=== PATIENT | male | born 1995 | race Caucasian/White ===

== ENCOUNTER 2020-04-22 11:40 | Emergency (ER) | payer OTHER, SELFPAY ==
--- NOTE | 2020-04-22 11:44 | ED_ITS ---
HPI - Overdose General Stated Complaint: SUBSTANCE ABUSE PER EMS NO NARCAN GIVEN Time Seen by Provider: 04/22/20 11:43 Source: patient and EMS Mode of arrival: EMS Limitations: no limitations History of Present Illness HPI Narrative: no SI, refuses detox, does not want narcan to take with him complaint: other (found sleepy in [facility] bathroom after using heroin, no narcan given) Onset (ago): minute(s) (just [employer]) Intent: other (not intentional just trying to get high) How Overdose Was Discovered: other (found sleepy in bathroom) Context: Accidental Overdose: wanted to get high Treatments Prior to Arrival: none Related Data Allergies Allergy/AdvReac Type Severity Reaction Status Date / Time No Known Allergies Allergy Unverified 01/20/20 16:28 [No Known Allergies*] Review of Systems Review of Systems: Constitutional : No Fever, No Chills ENT/Mouth : No Ear Pain, No Nasal Congestion, No sore throat Eyes: No Eye Pain, No Swelling, No Redness Cardiovascular : No Chest Pain, No SOB Respiratory : No Cough, No Sputum, No Dyspnea Gastrointestinal : No Nausea, No Vomiting, No Diarrhea, No Hematochezia, No Melena Genitourinary : No Dysuria, No Urinary Frequency, No Hematuria Musculoskeletal : No Myalgias Skin : No Skin Lesions, No rash Neuro : No Weakness, No Numbness, No Paresthesias, No Dizziness, No Headache Psych : noAnxiety, positive Depression, no SI/HI o PMFSH Past Medical History Attestation statement: The following information was validated with the patient. Medical History Opiate abuse, continuous Social History Social History (Updated 04/22/20 @ 11:47 by Tram Man DO) Smoking Status: Current every day smoker Substance Use Type: Heroin and IV Drugs Physical Exam Vital Signs: Appearance: Alert. Oriented X3. No acute distress. Smiling, laughing, eating a lollipop Eyes: Pupils equal, round and reactive to light. ENT: Pharynx normal. Neck: Normal inspection. Neck supple. CVS: Normal heart rate and rhythm. Pulses normal. Respiratory: No respiratory distress. Breath sounds normal. Abdomen: Soft and nontender. Skin: Skin warm and dry. Normal skin color. Normal skin turgor. Extremities: No lower extremity edema. No calf ttp Neuro: Oriented X 3. No motor deficit. No sensory deficit. Psych: no SI/HI MDM - Overdose MDM Narrative Medical decision making narrative: 25 yo male here after heroin abuse no SI/HI does not want detox or narcan to take with him, not toxic, no narcan given, awake and alert, stable for DC Discharge Plan Discharge Clinical Impression: Heroin abuse Patient Disposition: Home, Self-Care Instructions: Narcotic Use Disorder (ED) Additional Instructions: return to ED for any worsening symptoms or concerns
[2020-04-22 11:49] VITALS: BP 98/61; PULSE 109; RESP 18; TEMP 36.6; O2SAT 96; BMI 29.2
== END 2020-04-22 12:38 | disposition home or self-care (01) ==
LOC: HO.ED 12:04
PROVIDERS: Emergency Provider Emergency Medicine; PCP Family Medicine
DX: T40.1X1A Poisoning by heroin, accidental (unintentional), initial encounter (principal); F11.10 Opioid abuse, uncomplicated; Y92.9 Unspecified place or not applicable; F17.200 Nicotine dependence, unspecified, uncomplicated; Z71.6 Tobacco abuse counseling
CPT/HCPCS: 99283

== ENCOUNTER 2020-06-08 22:34 | Emergency (ER) | payer OTHER, SELFPAY ==
--- NOTE | ~2020-06-08 | XR_ITS ---
EXAMINATION: FINGER 3 VIEWS, RIGHT CLINICAL INFORMATION: Infection. Stuck with needle. COMPARISON: None. TECHNIQUE: A PA view of the right hand is provided along with two views of the second digit. FINDINGS: There is soft tissue swelling to the second digit. There are no fractures or dislocations. There are no radiopaque foreign bodies. XR/XR finger RT min 2V IMPRESSION: Soft tissue swelling to the second digit without fracture or dislocation. No radiopaque foreign bodies.
[2020-06-08 22:45] VITALS: BP 113/64; PULSE 91; RESP 16; TEMP 36.8; O2SAT 99; BMI 23.5
--- NOTE | 2020-06-08 23:57 | ED.SKABFB ---
HPI - Skin/Abscess/Foreign Bdy General Chief complaint: Skin/Abscess/Foreign Body Stated complaint: swollen finger needle stick Time Seen by Provider: 06/08/20 23:56 Source: patient Mode of arrival: ambulatory Limitations: no limitations History of Present Illness HPI narrative: 25-year-old male with medical history of IVDA substance abuse presents with abscess to the right index finger after needle stick. The needle did not break, and it was not used by any other person's but himself. He is currently homeless. Denies suicidal and homicidal ideations, chest pain or pressure, palpitations, fevers, chills, nausea, vomiting, diarrhea, and any other concerning symptoms. Related Data Previous Rx's Medication Instructions Recorded cephalexin 500 mg PO QID 7 Days #28 cap 06/09/20 doxycycline monohydrate 100 mg PO BID 7 Days #14 cap 06/09/20 Allergies Allergy/AdvReac Type Severity Reaction Status Date / Time No Known Allergies Allergy Verified 06/08/20 22:48 [No Known Allergies*] Review of Systems Review of Systems: Constitutional: No Fever, No Chills ENT/Mouth: No Ear Pain, No Hoarseness, No sore throat Eyes: No Eye Pain, No Swelling, No Redness, No Foreign Body Cardiovascular: No Chest Pain, No SOB Respiratory: No Cough, No Dyspnea Gastrointestinal: No Nausea, No Vomiting, No Diarrhea, No abdominal Pain Genitourinary: No Dysuria, No Hematuria Musculoskeletal: positive right index finger swelling and pain, No Myalgias, No Joint Swelling Skin: No Skin lacerations, No rash Neuro: No Weakness, No Numbness, No Paresthesias, No Loss of Consciousness, No Dizziness, No Headache Psych: No Anxiety/Panic, No Depression Heme/Lymph: no easy bruising, no Lymphadenopathy Endocrine: No Polyuria, No Polydipsia Yes all other systems are reviewed and are negative [facility] Past Medical History Attestation statement: The following information was validated with the patient. Source: old records reviewed Medical History Opiate abuse, continuous Social History Social History Alcohol intake: never Smoking Status: Current every day smoker Smoked in Last 30 Days: No Use of substances other than those prescribed or required for medical reasons: No Substance Use Type: Crack/Cocaine, Heroin and Marijuana Advance Directives: No Advance Directives Information Provided: No Physical Exam Vital Signs: Vital Signs: Last Vital Signs Temp 98.2 F 06/08/20 22:45 Pulse 91 06/08/20 22:45 Resp 16 06/08/20 22:45 BP 113/64 06/08/20 22:45 Pulse Ox 99 06/08/20 22:45 Body Mass Index 23.5 Appearance: Alert. Oriented X3. Appears intoxicated. No acute distress. Eyes: Pupils equal, round and reactive to light. ENT: Pharynx normal. Neck: Normal inspection. Neck supple. CVS: Normal heart rate and rhythm. Pulses normal. Respiratory: No respiratory distress. Breath sounds normal. Abdomen: Soft and nontender. Skin: Right index finger swollen, visible pustule right at the D IP joint, Skin warm and dry, disheveled and malodorous secondary to homelessness. Normal skin color. Normal skin turgor. Extremities: No lower extremity edema. Neuro: No motor deficit. No sensory deficit. Course Course Course Narrative: 25-year-old male with IV D a opioid abuse presents with cellulitis and abscess to the right index finger after a needle stick. X-rays are negative for foreign body, plan is to digitally block and I and D the abscess. Prepped and draped in sterile fashion, 11 blade used, Patient tolerated procedure well, approximately 4 mL of purulent drainage from the site, topical antibiotic ointment and sterile dressing applied. Patient discharged home with antibiotics. Patient verbalized understanding of and agrees plan of care discharge home. Procedures Abscess I/D Site: hand Side (if applicable): right Local Anesthetic: lidocaine 2% Amount of anesthesia used (mL): 4 Technique: incised with blade Amount of fluid expressed (mL): 4 Sent for culture/gram staining?: No Irrigation: Yes Packing used?: none MDM - Skin/Abscess/Foreign Bdy MDM Narrative Medical decision making narrative: Foreign body Differential Diagnosis Differential diagnosis: Likely abscess of skin or subcutaneous tissue Medical Records Attestation: I reviewed the patient's medical records. Imaging Data Right index finger x-ray: Attestation: I personally reviewed and interpreted this imaging study as follows: Radiologist's impression: EXAMINATION: FINGER 3 VIEWS, RIGHT CLINICAL INFORMATION: Infection. Stuck with needle. COMPARISON: None. TECHNIQUE: A PA view of the right hand is provided along with two views of the second digit. FINDINGS: There is soft tissue swelling to the second digit. There are no fractures or dislocations. There are no radiopaque foreign bodies. XR/XR finger RT min 2V IMPRESSION: Soft tissue swelling to the second digit without fracture or dislocation. No radiopaque foreign bodies. Discharge Plan Discharge Clinical Impression: Cellulitis Qualifiers: Site of cellulitis: extremity Site of cellulitis of extremity: finger Laterality: right Qualified Code(s): L03.011 - Cellulitis of right finger Abscess of skin or subcutaneous tissue Qualifiers: Site of cutaneous abscess: extremity Site of cutaneous abscess of extremity: hand Laterality: right Qualified Code(s): L02.511 - Cutaneous abscess of right hand Patient Disposition: Home, Self-Care Instructions: Cellulitis (ED), Abscess (ED) Additional Instructions: You were evaluated for abscess on the right index finger. X-rays negative for foreign body and bone involvement. We drain that abscess. Please return in 3 days for wound check. Please take doxycycline and Keflex as directed. These medications are antibiotics. Thank you for choosing this emergency department for evaluation. Please follow-up with primary care physician as needed. Return to the emergency department for any new, concerning, or worsening symptoms. Prescriptions: New doxycycline monohydrate 100 mg capsule 100 mg PO BID 7 Days Qty: 14 RF: 0 cephalexin 500 mg capsule 500 mg PO QID 7 Days Qty: 28 RF: 0
[2020-06-09] MEDS: cephALEXin 500 MG CAPSULE PO (00:12)
[2020-06-09] MEDS: Lidocaine HCl 2 % MPF 5 ML VIAL SUBCUT (00:14)
--- NOTE | 2020-06-09 01:20 | PC.NURSE ---
PT RIGHT PIONTER FINGER CLEANED AND DRAINED BY ANNE LIND. DSD APPLIED.
== END 2020-06-09 01:39 | disposition home or self-care (01) ==
PROVIDERS: Emergency Provider Internal Medicine
DX: L02.511 Cutaneous abscess of right hand (principal); L03.011 Cellulitis of right finger; M79.644 Pain in right finger(s); F11.10 Opioid abuse, uncomplicated; F17.200 Nicotine dependence, unspecified, uncomplicated; F14.10 Cocaine abuse, uncomplicated; F12.10 Cannabis abuse, uncomplicated; Z71.6 Tobacco abuse counseling
CPT/HCPCS: 20610; 73140; 90471; 90715; 99284

== ENCOUNTER 2020-10-19 16:33 | Emergency (ER) | payer OTHER, SELFPAY ==
--- NOTE | ~2020-10-19 | XR_ITS ---
EXAMINATION: XR FOOT, LEFT CLINICAL INFORMATION: Foot pain and swelling COMPARISON: None TECHNIQUE: AP, lateral, and oblique views of the left foot. FINDINGS: Soft tissue swelling is present especially on the dorsum of the foot. No bone or joint abnormality is seen. XR/XR foot LT min 3V IMPRESSION: Soft tissue swelling without bone or joint abnormality.
[2020-10-19 16:56] VITALS: BP 121/71; PULSE 110; RESP 18; TEMP 36.8; BMI 27.3
--- NOTE | 2020-10-19 21:18 | PC.NURSE ---
PT WHEELED OUT OF ED IN WHEELCHAIR, PT SWEARING AT STAFF ON WAY OUT STATING YOU [employer] [facility].
== END 2020-10-19 21:21 | disposition left against medical advice (07) ==
PROVIDERS: Emergency Provider Emergency Medicine
DX: M25.579 Pain in unspecified ankle and joints of unspecified foot (principal)
CPT/HCPCS: 73630; 99282; 99283

== ENCOUNTER 2020-10-21 23:37 | Emergency (ER) | payer OTHER, SELFPAY ==
--- NOTE | ~2020-10-21 | XR_ITS ---
EXAMINATION: XR FOOT, LEFT CLINICAL INFORMATION: Injury COMPARISON: None TECHNIQUE: 3 views of the left foot. FINDINGS: The bones and soft tissues are normal. No fracture. Alignment is anatomic. Joint spaces are maintained. XR/XR foot LT min 3V IMPRESSION: Normal left foot.
[2020-10-21 23:59] VITALS: BP 130/100; BP 130/51; PULSE 100; RESP 17; TEMP 37.7; O2SAT 100; O2SAT 98; BMI 36.6
--- NOTE | 2020-10-22 00:12 | ED_ITS ---
HPI - General Adult General Chief complaint: Extremity Injury, Lower Stated complaint: LT ANKLE PAIN/SWELLING NO KNOWN INJURY Time Seen by Provider: 10/22/20 00:12 Related Data Previous Rx's Medication Instructions Recorded cephalexin 500 mg PO QID 7 Days #28 cap 06/09/20 doxycycline monohydrate 100 mg PO BID 7 Days #14 cap 06/09/20 doxycycline hyclate 100 mg PO BID 10 Days #20 cap 10/22/20 ibuprofen 600 mg PO Q8H PRN #20 tab 10/22/20 Allergies Allergy/AdvReac Type Severity Reaction Status Date / Time No Known Allergies Allergy Verified 10/22/20 01:16 [No Known Allergies*] Review of Systems Review of Systems: Constitutional : No Weight loss, No Fever, No Chills, No Night Sweats, No Fatigue, No Malaise ENT/Mouth : No Hearing loss, No Ear Pain, No Nasal Congestion, No Sinus Pain, No Hoarseness, No sore throat, No Rhinorrhea, No Swallowing Difficulty Eyes: No Eye Pain, No Swelling, No Redness, No Foreign Body, No Discharge, No Vision Changes Cardiovascular : No Chest Pain, No SOB, No Dyspnea on Exertion, No Orthopnea, No Edema, No Palpitations Respiratory : No Cough, No Sputum, No Wheezing, No Smoke Exposure, No Dyspnea Gastrointestinal : No Nausea, No Vomiting, No Diarrhea, No Constipation, No abdominal Pain, No Hematochezia, No Melena Genitourinary : no irregular bleeding, No Dysuria, No Urinary Frequency, No Hematuria, No Urinary Incontinence, No Urgency, No Flank Pain, No Urinary Flow Changes, No Hesitancy Musculoskeletal : No joint pain, No Myalgias, No Joint Swelling Skin : No Skin Lesions, No rash, redness to his left ankle Neuro : No Weakness, No Numbness, No Paresthesias, No Loss of Consciousness, No Dizziness, No Headache Psych : No Anxiety/Panic, No Depression, No SI/HI/AH/VH, No Social Issues, Heme/Lymph: No Bruising, No Bleeding,No Lymphadenopathy Endocrine : No Polyuria, No Polydipsia, No Temperature Intolerance Yes all other systems are reviewed and are negative PMFSH Past Medical History Medical History Opiate abuse, continuous Social History Social History (Reviewed 10/22/20 @ 00:15 by Ruma Wallace [facility] Alcohol intake: never Substance Use Type: Crack/Cocaine, Heroin and Marijuana Advance Directives: No Advance Directives Information Provided: No Physical Exam Vital Signs: Vital Signs: Last Vital Signs Temp 99.9 F 10/21/20 23:59 Pulse 100 10/21/20 23:59 Resp 17 10/21/20 23:59 BP 130/51 L 10/21/20 23:59 Pulse Ox 100 10/21/20 23:59 Body Mass Index 36.6 Const: General: healthy appearing, no acute distress and well developed Nutritional Appearance: well nourished Orientation/consciousness: patient oriented x3 Neck: Neck: Yes normal visual inspection, Yes full ROM and Yes trachea midline Thyroid: Thyroid normal Resp: Auscultation: clear to auscultation bilaterally Cardio: Rate: regular rate Rhythm: regular rhythm GI: Inspection: Yes normal to inspection and No distended Palpation (GI): No hepatosplenomegaly present Auscultation: normal bowel sounds Skin: General skin exam: elasticity normal, turgor normal and dry skin Neuro: General: patient oriented x3 Extrem: Left lower extremity: edema (Left ankle edema) Course Course Course Narrative: 25-year-old male with history of IV drug use common here today for complaining of left ankle pain. Patient reports that he fell and injured his ankle. Patient's ankle is swollen and red. Patient denies IV drug use to his foot. Will obtain x-rays and medicate patient for pain. Small scab to his 5th toe negative for drainage. Reevaluation(s) Reevaluation #1: X-ray negative for any acute processes. I will send patient home with ibuprofen and doxycycline. Patient reports that he does not inject into his foot. Mild swelling around his ankle however no visible track leal Medical Decision Making Imaging Data Left foot x-ray: Radiologist's impression: FINDINGS: The bones and soft tissues are normal. No fracture. Alignment is anatomic. Joint spaces are maintained. XR/XR foot LT min 3V IMPRESSION: Normal left foot. Discharge Plan Discharge Clinical Impression: Ankle sprain and strain Patient Disposition: Home, Self-Care Instructions: Swollen Ankle Joint (ED) Additional Instructions: You were seen here today for complaints of ankle pain and swelling. Your x-rays negative for any abnormality. Please follow-up with your primary care physician in 2-3 days. You may return to emergency department if you will experience worsening symptoms or any other concerning symptoms Prescriptions: New doxycycline hyclate 100 mg capsule 100 mg PO BID 10 Days Qty: 20 RF: 0 ibuprofen 600 mg tablet 600 mg PO Q8H PRN (Reason: pain) Qty: 20 RF: 0 No Action doxycycline monohydrate 100 mg capsule 100 mg PO BID 7 Days Qty: 14 RF: 0 cephalexin 500 mg capsule 500 mg PO QID 7 Days Qty: 28 RF: 0
--- NOTE | 2020-10-22 00:12 | PC.NURSE ---
[employer] at bedside.
[2020-10-22] MEDS: Ibuprofen 600 MG TABLET PO (00:24)
--- NOTE | 2020-10-22 00:24 | PC.NURSE ---
Pt medicated per JUL. Off to XRay on hospital bed.
--- NOTE | 2020-10-22 01:15 | PC.NURSE ---
Medicated with ABX, awaiting DC instructions.
== END 2020-10-22 01:43 | disposition home or self-care (01) ==
PROVIDERS: Emergency Provider Student in an Organized Health Care Education/Training Program
DX: S93.402A Sprain of unspecified ligament of left ankle, initial encounter (principal); S96.912A Strain of unspecified muscle and tendon at ankle and foot level, left foot, initial encounter; F11.10 Opioid abuse, uncomplicated; W19.XXXA Unspecified fall, initial encounter; Y93.9 Activity, unspecified; Y92.9 Unspecified place or not applicable; Y99.9 Unspecified external cause status
CPT/HCPCS: 73630; 99283; 99284

== ENCOUNTER 2021-06-14 19:05 | Emergency (ER) | payer OTHER, SELFPAY ==
[2021-06-14 20:18] VITALS: BP 120/72; PULSE 64; RESP 16; TEMP 36.4; O2SAT 100; BMI 24.6
--- NOTE | 2021-06-14 22:55 | ED.DENTAL ---
HPI - Dental/Oral General Chief complaint: Dental/Oral Stated complaint: tooth pain Time Seen by Provider: 06/14/21 22:11 Source: patient Mode of arrival: ambulatory Limitations: no limitations History of Present Illness MD Complaint: tooth pain Location: Tooth # (left last molar - impacted wisdom tooth) Onset (ago): day(s) Duration: constant Severity: moderate Relieving factors: nothing Exacerbating factors: chewing, cold and heat Context: other (never had wisdom tooth removal ) Associated symptoms: gum swelling and pain with swallowing Treatment prior to arrival: none Related Data Previous Rx's Medication Instructions Recorded cephalexin 500 mg capsule 500 mg PO QID 7 Days #28 cap 06/09/20 doxycycline monohydrate 100 mg 100 mg PO BID 7 Days #14 cap 06/09/20 capsule doxycycline hyclate 100 mg capsule 100 mg PO BID 10 Days #20 cap 10/22/20 ibuprofen 600 mg tablet 600 mg PO Q8H PRN #20 tab 10/22/20 amoxicillin 875 mg-potassium 1 tab PO BID #14 tab 06/14/21 clavulanate 125 mg tablet ibuprofen 600 mg tablet 600 mg PO Q6H PRN #30 tab 06/14/21 Allergies Allergy/AdvReac Type Severity Reaction Status Date / Time No Known Allergies Allergy Verified 10/22/20 01:16 [No Known Allergies*] Review of Systems Review of Systems: Constitutional : No Fever, No Chills ENT/Mouth : No swallowing difficulty, no change in voice, positive dental pain, positive jaw pain, no facial swelling Eyes: No Eye Pain, No Swelling Cardiovascular : No Chest Pain, No SOB Respiratory : No Cough, No Sputum Gastrointestinal : No Nausea, No Vomiting, No Diarrhea Genitourinary : No Dysuria Musculoskeletal : No Myalgias Skin : No rash Neuro : No Weakness, No Numbness, No Headache PMFSH Past Medical History Medical History Opiate abuse, continuous Social History Social History Alcohol intake: never Substance Use Type: Crack/Cocaine, Heroin and Marijuana Advance Directives: No Physical Exam Vital Signs: Vital Signs: Last Vital Signs Temp 97.6 F 06/14/21 20:18 Pulse 64 02/10/22 20:18 Resp 16 06/14/21 20:18 BP 120/72 06/14/21 20:18 Pulse Ox 100 06/14/21 20:18 BMI result Body Mass Index 24.6 Appearance: Alert. Oriented X3. No acute distress. Eyes: Pupils equal, round and reactive to light. ENT: no submandibular no sublingual swelling, L lower wisdom tooth is impacted no abscess seen but mild gingival swelling and redness noted no drainage seen ttp noted, no trismus Neck: Normal inspection. Neck supple. CVS: Normal heart rate and rhythm. Pulses normal. Respiratory: No respiratory distress. Breath sounds normal. Abdomen: Soft and nontender. Skin: Skin warm and dry. Normal skin color. Normal skin turgor. Extremities: No lower extremity edema. No calf ttp Neuro: Oriented X 3. No motor deficit. No sensory deficit. MDM - Dental/Oral MDM Narrative Medical decision making narrative: 26 yo male here with left lower impacted wisdom tooth causing pain - no signs of deeper space infection I do not see an abscess he is aware he will need to have it removed. Will start on augmentin and DC home with precautions. Discharge Plan Discharge Clinical Impression: Dental infection, Impacted tooth Patient Disposition: Home, Self-Care Instructions: Toothache (ED) Additional Instructions: return to ED for any worsening symptoms or concerns please follow up with a dentist as soon as possible Prescriptions: New amoxicillin-pot clavulanate 875-125 mg tablet 1 tab PO BID Qty: 14 0RF ibuprofen 600 mg tablet 600 mg PO Q6H PRN (Reason: pain) Qty: 30 0RF No Action doxycycline monohydrate 100 mg capsule 100 mg PO BID 7 Days Qty: 14 0RF cephalexin 500 mg capsule 500 mg PO QID 7 Days Qty: 28 0RF doxycycline hyclate 100 mg capsule 100 mg PO BID 10 Days Qty: 20 0RF ibuprofen 600 mg tablet 600 mg PO Q8H PRN (Reason: pain) Qty: 20 0RF
[2021-06-14] MEDS: Ibuprofen 600 MG TABLET PO (23:55)
[2021-06-14] MEDS: Amoxicillin/Potassium Clav 875 MG TABLET PO (23:55)
== END 2021-06-15 00:11 | disposition home or self-care (01) ==
LOC: HO.ED 23:02
PROVIDERS: Emergency Provider Emergency Medicine
DX: K04.7 Periapical abscess without sinus (principal); K01.1 Impacted teeth
CPT/HCPCS: 99283